=== PATIENT | male | born 1955 | race African-American/Black ===

== ENCOUNTER 2020-01-21 11:20 | Emergency (ER) | payer MEDICARE, OTHER ==
[~2020-01-21] VITALS: Ht 177.8 cm; Wt 91.0 kg
[2020-01-21] MEDS ORDERED: MORPHINE SULFATE 4 MG/ML CPJ (NOT FOR IM USE) IV STA (11:38)
[2020-01-21] MEDS ORDERED: ONDANSETRON HCL 4MG/2ML INJ IV STA (11:38)
[2020-01-21] MEDS ORDERED: SODIUM CHLORIDE 0.9% 1,000 ML IV ONE (11:38)
[2020-01-21 11:55] LABS: HEMATOCRIT. 41.5 % (42.0-52.0); MEAN CORPUSCULAR HEMOGLOBIN 31.2 pg (28.0-32.0); MEAN CORPUSCULAR VOLUME 92.2 fL (80.0-94.0); PLATELET 176 x1000/uL (130-400); RED CELL DISTRIBUTION WIDTH 15.3 % (11.6-14.6)
[2020-01-21 12:01] LABS: CHLORIDE 105 mEq/L (98-107)
[2020-01-21 12:06] LABS: INR 1.1; PARTIAL THROMBOPLASTIN TIME 23.1 sec (23.4-31.0); PROTHROMBIN TIME 11.6 sec (9.6-11.0)
[2020-01-21 12:33] LABS: PLATELET ESTIMATE NORMAL
[2020-01-21] MEDS ORDERED: HYDRALAZINE 20MG/ML VIAL IV ONE (13:45)
[2020-01-21] MEDS ORDERED: IOHEXOL-300 100 ML BOTTLE ONE (14:04)
[2020-01-21 14:33] VITALS: BP 172/90
== END 2020-01-21 14:35 | disposition left against medical advice (07) ==
LOC: ER 11:58 → CANBEDREQ 19:17
DX: R55 Syncope and collapse (principal); R07.9 Chest pain, unspecified; R91.8 Other nonspecific abnormal finding of lung field; V47.0XXA Car driver injured in collision with fixed or stationary object in nontraffic accident, initial encounter; Y93.89 Activity, other specified; Y92.410 Unspecified street and highway as the place of occurrence of the external cause
CPT/HCPCS: 36415; 70450; 71045; 71260; 80053; 83880; 84484; 85025; 85610; 85730; 93005; 96361; 96374; 96375; 99285; J0360; J2270; J2405; J7030; Q9967